=== PATIENT | female | born 1990 | race Caucasian/White ===

== ENCOUNTER → 2016-05-11 | Outpatient (CLI) | payer OTHER ==
[~2016-05-11] VITALS: Ht 162.6 cm; Wt 124.7 kg
[~2016-05-11] MED LIST: ATIVAN 0.50.5 MG/TAB PO; BACTRIM DS 8001 TAB; CELEXA; CLARITIN 1010 MG/TAB PO; CRYSELLE 30 MCG1 TAB PO; ESCITALOPRAM; FASTIN30 MG PO; FLEXERIL10 MG PO; LAMICTAL 100MG100 MG PO; LAMICTAL100 MG PO; LEXAPRO 10MG10 MG PO; LEXAPRO20 MG PO; LUTERA 0.02 MG-1 TAB PO; MULTIPLE VITAMI1 CAP PO; NATURE'S BLE1000 MCG PO; NO HOME MEDICATIONS; NORCO 325 MG-7.1 TAB PO; NUVARING VAG RING VG; ORSYTHIA 0.02 M1 TAB PO; ORTHO TRI-CYCLE1 TA1 PO; PHENTERMINE15 MG PO; PORTIA-28 30 MC1 TAB PO; PRILOSEC 20MG20 MG PO; SINEQUAN 1010 MG/CAP PO; TEGRETOL 2200 MG/TA1 PO; VENTOLIN0.09 MG IH; ZOFRAN 4MG T4 MG/TAB PO
[2016-05-11 14:05] VITALS: BP 120/80; PULSE 88
[2016-05-11 14:20] VITALS: BP 120/80; PULSE 88
== END ==
LOC: LIGHT 14:00
DX: Z98.84 Bariatric surgery status (principal); Z68.42 Body mass index [BMI] 45.0-49.9, adult

== ENCOUNTER → 2016-07-06 | Outpatient (CLI) | payer OTHER ==
[~2016-07-06] VITALS: Ht 162.6 cm; Wt 114.8 kg
[2016-07-06 14:26] VITALS: BP 138/71; PULSE 87
[2016-07-06 14:55] VITALS: BP 138/71; PULSE 87
== END ==
LOC: LIGHT 13:55
DX: Z53.9 Procedure and treatment not carried out, unspecified reason (principal)

== ENCOUNTER → 2016-10-12 | Outpatient (CLI) | payer OTHER ==
[~2016-10-12] VITALS: Ht 162.6 cm; Wt 108.4 kg
[2016-10-12 15:22] VITALS: BP 117/64; PULSE 90
== END ==
LOC: LIGHT 11:39
DX: E16.1 Other hypoglycemia (principal); E78.5 Hyperlipidemia, unspecified; E66.01 Morbid (severe) obesity due to excess calories; Z68.41 Body mass index [BMI] 40.0-44.9, adult; Z71.3 Dietary counseling and surveillance; F33.9 Major depressive disorder, recurrent, unspecified

== ENCOUNTER → 2016-10-29 | Outpatient (CLI) | payer OTHER | LOC: BHSO 08:51 | DX: F33.2 Major depressive disorder, recurrent severe without psychotic features (principal) ==

== ENCOUNTER → 2016-11-23 | Outpatient (CLI) | payer OTHER | LOC: BHSO 14:39 | DX: F33.1 Major depressive disorder, recurrent, moderate (principal) ==

== ENCOUNTER → 2016-11-27 | Outpatient (CLI) | payer OTHER | LOC: BHSO 13:58 | DX: F31.11 Bipolar disorder, current episode manic without psychotic features, mild (principal) ==

== ENCOUNTER 2017-02-01 11:11 | Emergency (ER) | payer BC ==
[~2017-02-01] VITALS: Ht 162.6 cm; Wt 107.3 kg
[2017-02-01 11:16] VITALS: TEMP 97.9
[2017-02-01 12:20] LABS: PH 6 (5-8); URINE APPEARANCE Clear; URINE BACTERIA None Seen /hpf; URINE BILIRUBIN Negative (NEGATIVE); URINE BLOOD Negative (NEGATIVE); URINE COLOR Yellow; URINE GLUCOSE Negative (NEGATIVE); URINE KETONE Negative (NEGATIVE); URINE RBC 0-2 /hpf
[2017-02-01 12:43] VITALS: BP 128/74; PULSE 91
== END 2017-02-01 12:53 | disposition home or self-care (01) ==
LOC: COL.ER 11:11
PROVIDERS: Emergency Medicine
DX: F41.0 Panic disorder [episodic paroxysmal anxiety] (principal); F32.9 Major depressive disorder, single episode, unspecified

== ENCOUNTER → 2017-02-02 | Outpatient (CLI) | payer BC | LOC: BHSO 09:12 | DX: F33.1 Major depressive disorder, recurrent, moderate (principal) ==

== ENCOUNTER → 2017-03-16 | Outpatient (CLI) | payer BC | LOC: BHSO 10:17 | DX: F33.1 Major depressive disorder, recurrent, moderate (principal) ==

== ENCOUNTER → 2017-06-10 | Outpatient (CLI) | payer BC | LOC: BHSO 12:46 | DX: F33.1 Major depressive disorder, recurrent, moderate (principal) | CPT/HCPCS: G0463 ==

== ENCOUNTER → 2017-06-30 | Outpatient (CLI) | payer BC | LOC: BHSO 13:41 | DX: F31.31 Bipolar disorder, current episode depressed, mild (principal) ==

== ENCOUNTER → 2017-10-20 | Outpatient (CLI) | payer BC | LOC: BHSO 13:57 | DX: F33.42 Major depressive disorder, recurrent, in full remission (principal) | CPT/HCPCS: G0463 ==

== ENCOUNTER → 2017-12-01 | Outpatient (CLI) | payer BC | LOC: BHSO 16:02 | DX: F31.11 Bipolar disorder, current episode manic without psychotic features, mild (principal) ==

== ENCOUNTER → 2018-04-19 | Outpatient (CLI) | payer BC | LOC: BHSO 16:18 | DX: F33.42 Major depressive disorder, recurrent, in full remission (principal) | CPT/HCPCS: G0463 ==

== ENCOUNTER → 2018-06-22 | Outpatient (CLI) | payer BC | LOC: BHSO 14:41 | DX: F41.1 Generalized anxiety disorder (principal) | CPT/HCPCS: G0463 ==

== ENCOUNTER → 2018-11-24 | Outpatient (CLI) | payer BC | LOC: BHSO 14:58 | DX: F31.81 Bipolar II disorder (principal) ==

== ENCOUNTER → 2019-01-20 | Outpatient (CLI) | payer BC | LOC: BHSO 15:49 | DX: F33.42 Major depressive disorder, recurrent, in full remission (principal) | CPT/HCPCS: G0463 ==

== ENCOUNTER → 2019-06-16 | Outpatient (CLI) | payer BC | LOC: BHSO 15:35 | DX: F41.1 Generalized anxiety disorder (principal) | CPT/HCPCS: G0463 ==

== ENCOUNTER → 2019-09-15 | Outpatient (CLI) | payer BC | LOC: BHSO 08:58 | DX: F31.81 Bipolar II disorder (principal) ==

== ENCOUNTER → 2020-10-24 | Outpatient (REF) ==
[~2020-10-24] MED LIST changes: +WELLBUTRIN SR150 M1 PO; +XYZAL5 MG PO; +ZOLOFT 25MG25 MG PO
== END ==
LOC: COL.LAB 08:16 → EDSTATUS 08:18
DX: Z20.822 Contact with and (suspected) exposure to COVID-19 (principal)

== ENCOUNTER → 2020-11-08 | Outpatient (REF) | LOC: COL.LAB 11:10 | DX: Z20.822 Contact with and (suspected) exposure to COVID-19 (principal) ==

== ENCOUNTER 2021-02-18 09:13 | Outpatient (CLI) | payer OTHER ==
[2021-02-18] VITALS (7 sets, daily range): BP systolic 119–135; BP diastolic 86–89; PULSE 75–86; TEMP 98.2
[~2021-02-18 09:13] MED LIST changes: -WELLBUTRIN SR150 M1 PO; -XYZAL5 MG PO; -ZOLOFT 25MG25 MG PO
[2021-02-18] MEDS ORDERED: ZOLOFT 25MG25 MG PO (10:35)
[2021-02-18] MEDS ORDERED: WELLBUTRIN SR150 M1 PO (10:35)
[2021-02-18] MEDS ORDERED: XYZAL5 MG PO (10:37)
== END 2021-02-18 12:00 | disposition home or self-care (01) ==
LOC: EUO 09:13
DX: U07.1 COVID-19 (principal); E66.9 Obesity, unspecified; J98.4 Other disorders of lung
CPT/HCPCS: Q0244